=== PATIENT | female | born 1955 | race Caucasian/White ===

== ENCOUNTER → 2017-03-15 | Outpatient (CLI) | payer BC ==
--- NOTE | 2017-03-15 12:33 | MAMMOGRAPHY REPORT ---
BILATERAL DIGITAL SCREENING MAMMOGRAM TOMOSYNTHESIS WITH CAD: 03/15/2017 CLINICAL HISTORY: Routine screening. Patient has no complaints. TECHNIQUE: Breast tomosynthesis in addition to standard 2D mammography was performed. Current study was also evaluated with a Computer Aided Detection (CAD) system. COMPARISON: Comparison is made to exams dated: 03/19/2015 mammogram, 03/06/2013 mammogram, 03/05/2012 ul trasound, 03/05/2012 mammogram, 02/29/2012 mammogram, and 02/11/2011 mammogram - [facility] nter. BREAST COMPOSITION: There are scattered areas of fibroglandular density in both breasts. FINDINGS: No suspicious masses, calcifications, or areas of architectural distortion are noted in ei ther breast. There has been no significant interval change compared to prior exams. Scattered bilater al benign-appearing calcifications are not significantly changed. IMPRESSION: ACR BI-RADS CATEGORY 2: BENIGN There is no mammographic evidence of malignancy. A 1 year screening mammogram is recommended. The pa tient will receive written notification of the results. Approximately 10% of breast cancers are not detected with mammography. A negative mammographic report should not delay biopsy if a clinically suggestive mass is present. Kathleen Starkye M.D. /:03/15/2017 07:52:33 Hand Pattern Marker: Ashlie Payne, [facility] letter sent: Normal 1/2 BI-RADS Code: ACR BI-RADS Category 2: Benign
== END | disposition home or self-care (01) ==
LOC: C.MAMM 07:30
PROVIDERS: ATTEND Family Medicine
DX: Z12.31 Encounter for screening mammogram for malignant neoplasm of breast (principal)

== ENCOUNTER → 2018-01-10 | Outpatient (CLI) | payer OTHER ==
--- NOTE | 2018-01-10 15:46 | MAMMOGRAPHY REPORT ---
UNILATERAL RIGHT DIGITAL DIAGNOSTIC MAMMOGRAM TOMOSYNTHESIS WITH CAD AND TARGETED RIGHT ULTRASOUND: CLINICAL HISTORY: The patient reports that her provider felt palpable lumps in the right breast durin g a routine clinical exam. The patient cannot feel the lumps herself. She reports a family history of breast cancer including multiple aunts and cousins. TECHNIQUE: Breast tomosynthesis in addition to standard 2D mammography was performed. Current study was also evaluated with a Computer Aided Detection (CAD) system. Right CC and MLO 2D and tomosynthes is images were obtained. COMPARISON: Comparison is made to exams dated: 03/15/2017 mammogram, 03/19/2015 mammogram, 03/06/2013 tere mogram, 02/29/2012 mammogram, 01/26/2011 mammogram, and 01/19/2010 mammogram - [facility]. BREAST COMPOSITION: There are scattered areas of fibroglandular density in the right breast. FINDINGS: There are no suspicious masses, calcifications, or areas of architectural distortion noted in the right breast mammographically. There has been no significant interval change compared to prio r exams. Targeted ultrasound was performed of the areas of the palpable lumps felt by the ordering provider. The patient cannot pinpoint the location of the lumps herself, however, the provider order reports th at the lumps are located in the right 12:00, 6:00, and 4:00 breast. Therefore, ultrasound was perfor med of these regions, which shows sonographically normal tissue without evidence of a mass or other s uspicious sonographic abnormality. IMPRESSION: ACR BI-RADS CATEGORY 2: BENIGN, TARGETED ULTRASOUND ACR BI-RADS CATEGORY 2: BENIGN No suspicious mammographic or sonographic abnormalities at the site of the palpable lumps in the righ t 12:00, 6:00, and 4:00 breast felt by the ordering provider. There is no mammographic or targeted s onographic evidence of malignancy. Recommend clinical follow-up for the right breast palpable lumps, and recommend routine bilateral screening mammograms which are due March 2018. On discussion, the pa tiekamryn would only prefer screening mammograms of the left breast in March. The patient has been verbally notified of the results. Approximately 10% of breast cancers are not detected with mammography. A negative mammographic report should not delay biopsy if a clinically suggestive mass is present. Kathleen Starkey M.D. ah/:01/10/2018 08:36:56 Gang Rider: Juan Carlos WEBB)(M), [facility] letter sent: Normal 1/2 BI-RADS Code: ACR BI-RADS Category 2: Benign Ultrasound BI-RADS: ACR BI-RADS Category 2: Benign
== END | disposition home or self-care (01) ==
LOC: C.MAMM 08:10
PROVIDERS: ATTEND Family Medicine
DX: N63.10 Unspecified lump in the right breast, unspecified quadrant (principal)